=== PATIENT | male | born 1970 | race Caucasian/White ===

== ENCOUNTER 2018-04-03 10:42 | Emergency (ER) | payer SELFPAY ==
[2018-04-03 12:05] VITALS: BP 119/81
--- NOTE | 2018-04-03 12:06 | UC ---
Dental HPI - HPI Summary HPI Summary: 47 yo male presents with lower left tooth pain for the last few weeks - getting progressively worse. Over the last 4-5 days has noticed increasing pain and new swelling to the area. He is visiting from the [place] and says he has a dentist back home that he will see when he returns. He is still eating and drinking as normal. Has not taken anything for pain. Denies fever or chills - History of Current Complaint Chief Complaint: UCDentalProblem Stated Complaint: DENTAL PAIN Time Seen by Provider: 04/03/18 12:06 Hx Obtained From: Patient Onset/Duration: Gradual Onset Severity: Severe Pain Intensity: 8 Pain Scale Used: 0-10 Numeric - Allergies/Home Medications Allergies/Adverse Reactions: Allergies Allergy/AdvReac Type Severity Reaction Status Date / Time cephalexin [From Keflex] Allergy Anaphylatic Verified 04/03/18 12:00 Shock Penicillins Allergy Anaphylatic Verified 04/03/18 12:00 Shock Home Medications: Home Medications Albuterol HFA INHALER* [Ventolin HFA Inhaler*] 2 puff INH Q4HR PRN 04/03/18 [ History Confirmed 04/03/18] PMH/Surg Hx/FS Hx/Imm Hx Previously Healthy: Yes Respiratory History: Asthma - Surgical History Surgical History: None - Family History Known Family History: Positive: None - Social History Occupation: Employed Full-time Lives: With Family Alcohol Use: None Substance Use Type: None Smoking Status (MU): Light Every Day Tobacco Smoker Type: Cigarettes Amount Used/How Often: 5-10 cig/day Household Exposure Type: Cigarettes Review of Systems Constitutional: Negative Skin: Negative Eyes: Negative ENT: Dental Pain Respiratory: Negative Cardiovascular: Negative Gastrointestinal: Negative Neurovascular: Negative Neurological: Negative Psychological: Negative All Other Systems Reviewed And Are Negative: Yes Physical Exam - Summary Physical Exam Summary: GENERAL: NAD. WDWN. No pain distress. SKIN: No rashes, sores, lesions, or open wounds. HEENT: Head: AT/NC Nose: Nasal mucosa pink and moist. NTTP maxillary and frontal sinus. Throat: Posterior oropharynx without exudates, erythema, or tonsillar enlargement. Uvula midline. NECK: Supple. Nontender. No lymphadenopathy. CHEST: No accessory muscle use. Breathing comfortably and in no distress. CV: Pulses intact. Brisk cap refill. NEURO: Alert. CN II-XII grossly intact. PSYCH: Age appropriate behavior. Triage Information Reviewed: Yes Vital Signs: Initial Vital Signs Temp 98.3 F 04/03/18 12:01 Pulse 79 04/03/18 12:01 Resp 16 04/03/18 12:01 BP 119/81 04/03/18 12:01 Pulse Ox 99 04/03/18 12:01 Vital Signs Reviewed: Yes Dental: Positive: Percussion Tenderness @ - Tooth 17, Gross Decay/Caries @ - throughout, Abscess @ - tooth 17. Negative: Dental Fracture @, Cellulitis @, Cervical Lymphadenopathy, Bleeding Dental Complaint Course/Dx - Course Course Of Treatment: Dental abscess tooth 17. Pt said that in the [place] they prescribe him Metronidazole for when he gets a dental abscess and this works well - will rx for this today. - Differential Dx/Diagnosis Provider Diagnoses: Dental abscess tooth 17 Discharge - Sign-Out/Discharge Documenting (check all that apply): Discharge/Admit/Transfer - Discharge Plan Condition: Stable Disposition: HOME Prescriptions: metroNIDAZOLE TAB* [Flagyl 250 mg TAB*] 250 mg PO TID #21 tab Patient Education Materials: Dental Abscess (ED) Referrals: No Primary Care Phys,NOPCP [Primary Care Provider] - Additional Instructions: If you develop a fever, shortness of breath, chest pain, new or worsening symptoms - please call your PCP or go to the ED. - Billing Disposition and Condition Condition: STABLE Disposition: Home
== END 2018-04-03 12:27 | disposition home or self-care (01) ==
LOC: UCEAST 10:42
DX: K04.7 Periapical abscess without sinus (principal); J45.909 Unspecified asthma, uncomplicated; F17.210 Nicotine dependence, cigarettes, uncomplicated; Z88.0 Allergy status to penicillin; Z88.1 Allergy status to other antibiotic agents
CPT/HCPCS: 99202; G0463